=== PATIENT | female | born 1960 | race Two or more races ===

== ENCOUNTER 2020-10-06 07:30 | Inpatient (IN) | payer OTHER ==
[~2020-10-06] VITALS: Ht 152.4 cm; Wt 117.9 kg
[2020-10-06] MEDS ORDERED: VASOTEC20 M1 PO (09:41)
[2020-10-06] MEDS ORDERED: SINGULAIR10 MG PO (13:45)
[2020-10-06] MEDS ORDERED: PROAIR HFA8.5 GM IH (13:45)
[2020-10-06] MEDS ORDERED: SYMBICORT 80/10.2 GM (13:45)
== END 2020-10-11 11:43 | disposition home or self-care (01) | DRG 743 ==
LOC: O/R 10-08 05:33 → OB/GYN 10-08 05:33
PROVIDERS: ADMIT Specialist; ATTEND Specialist
PROC: 0UT20ZZ Resection of Bilateral Ovaries, Open Approach (ICD-10-PCS; 2020-10-08)
PROC: 0UT70ZZ Resection of Bilateral Fallopian Tubes, Open Approach (ICD-10-PCS; 2020-10-08)
PROC: 0UT90ZZ Resection of Uterus, Open Approach (ICD-10-PCS; principal; 2020-10-08 08:15)
PROC: 30233N1 Transfusion of Nonautologous Red Blood Cells into Peripheral Vein, Percutaneous Approach (ICD-10-PCS; 2020-10-10)
DX: D25.1 Intramural leiomyoma of uterus (principal); D25.2 Subserosal leiomyoma of uterus; D26.0 Other benign neoplasm of cervix uteri; N83.291 Other ovarian cyst, right side; N84.0 Polyp of corpus uteri; N83.292 Other ovarian cyst, left side; D64.9 Anemia, unspecified; I10 Essential (primary) hypertension; E66.9 Obesity, unspecified; G47.33 Obstructive sleep apnea (adult) (pediatric)